=== PATIENT | female | born 1990 | race Caucasian/White ===

== ENCOUNTER 2021-10-28 23:36 | Inpatient (IN) | payer OTHER, SELFPAY ==
--- OUTSIDE RECORDS SUMMARY | 2021-10-28 23:39 | XMS REPORT | Continuity of Care Document ---
:1990 Author Organization [facility] t Address [address] [place] [address] Care Team Providers Name Role Phone Joe Attending Clinician Unavailable Salgado, Laura Admitting Clinician Unavailable Payers Payer Name Policy Type Policy Number Effective Date Expiration Date S ource Problems This patient has no known problems. Allergies, Adverse Reactions, Alerts Allergy Allergy Status Severity Reaction(s) Onset Inactive Treating Comm ents Source Name Type Date Date Clinician No Known DA Active U 2014- [facility] 8-20 [place] s 00:00: d 00 [facility] No Known DA Active U 2014-0 [facility] Allergie 8-20 Clear s 00:00: Pak [address] [place] [address] Medications This patient has no known medications. Procedures This patient has no known procedures. Encounters Start End Encounter Admission Attending Care Care Encounter Source Date/Time Date/Time Type Type Clinicians Facility Department ID 2021-08-16 2021-08-16 Emergency EM Joe, [facility] [id number] [facility] 21:12:00 21:38:00 Adolfo [id number] [facility] 2021-08-16 2021-08-16 Emergency EM Joe, [facility] [id number] [address] [facility] 21:12:00 21:38:00 Adolfo 44 [facility] Results This patient has no known results.
[2021-10-28 23:58] LABS: Absolute Lymphocytes (CBC) 1.7 K/uL (0.7-4.9); Hematocrit 44.4 % (36.0-45.0); MPV 8.5 fL (7.6-11.3); RBC Red Blood Cell Count 4.91 M/uL (3.86-4.86)
[2021-10-29 00:04] LABS: Protime INR 0.96
[2021-10-29 00:24] LABS: ALT/SGPT 21 U/L (12-78); AST/SGOT 18 U/L (15-37); Albumin 4.1 g/dL (3.4-5.0); Alkaline Phosphatase 57 U/L (45-117); BUN Blood Urea Nitrogen 8 mg/dL (7-18); Bicarbonate 30 mmol/L (21-32); Bilirubin Direct 0.2 mg/dL (0-0.2); Bilirubin Total 0.9 mg/dL (0.2-1.0); Glucose Level 91 mg/dL (74-106); Potassium 3.1 mmol/L (3.5-5.1); Protein, Total 7.8 g/dL (6.4-8.2); Sodium Level 137 mmol/L (136-145)
[2021-10-29] MEDS ORDERED: NA CHLORIDE 0.9% 1,000 ML ONE ×3 (00:33→09:50)
[2021-10-29 01:46] LABS: Barbiturates NEGATIVE (NEGATIVE); Benzodiazepines POSITIVE (NEGATIVE); Cocaine NEGATIVE (NEGATIVE); METHAMPHETAM POSITIVE (NEGATIVE); Methadone NEGATIVE (NEGATIVE); Opiates NEGATIVE (NEGATIVE); Phencyclidine NEGATIVE (NEGATIVE); THC Cannibis NEGATIVE (NEGATIVE)
[2021-10-29 03:19] LABS: Valproic Acid (Depakene) Level < 3.0 ug/mL (50-100)
[2021-10-29 03:44] LABS: Urine Blood Trace-intact (Negative); Urine Glucose Negative (Negative); Urine Protein Negative (Negative); Urine pH 5.5 (5.0-7.0)
--- NOTE | 2021-10-29 03:52 | ER ---
Nurse's Notes [facility] Name: Krystal Kelley Age: 31 yrs Sex: Female : 1990 Arrival Date: 10/28/2021 Time: 23:38 Bed External Waiting Private MD: Diagnosis: Altered mental status;Altered mental status, unspecified;Substance abuse: Methamphetamine, benzodiazepine Presentation: 10/28 23:47 Chief complaint: EMS states: possible overdose on Quetiapine 50mg and Divalproex st1 delayed release 250mg. Coronavirus screen: Vaccine status: Patient reports being unvaccinated. Client denies travel out of the [place] in the last 14 days. Ebola Screen: No symptoms or risks identified at this time. Initial Sepsis Screen: Does the patient meet any 2 criteria? No. Patient's initial sepsis screen is negative. Does the patient have a suspected source of infection? No. Patient's initial sepsis screen is negative. Risk Assessment: Do you want to hurt yourself or someone else? Patient reports no desire to harm self or others. Onset of symptoms was October 28, 2021. 23:47 Method Of Arrival: EMS: [place] [id number] 23:47 Acuity: RTAVIS 3 st1 Triage Assessment: 23:51 General: Appears in no apparent distress. comfortable, lethargic, slurred speech . st1 Behavior is calm, cooperative, drowsy, flat. Pain: Denies pain. 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 Flu vaccine is not up to date. - Social history:: Smoking status: Patient reports the use of cigarette tobacco products, smokes one pack cigarettes per day. Patient uses alcohol, Patient/guardian denies using street drugs, IV drugs. Screenin:53 Abuse screen: Denies threats or abuse. Nutritional screening: No deficits noted. st1 Tuberculosis screening: No symptoms or risk factors identified. Fall Risk None identified. No fall in past 12 months (0 pts). No secondary diagnosis (0 pts). IV access (20 points). Ambulatory Aid- None/Bed Rest/Nurse Assist (0 pts). Gait- Normal/Bed Rest/Wheelchair (0 pts) Mental Status- Oriented to own ability (0 pts). Total Alan Fall Scale indicates No Risk (0-24 pts). Assessment: 23:53 Reassessment: Patient and/or family updated on plan of care and expected duration. Pain st1 level reassessed. Patient denies pain at this time. General: Appears. Cardiovascular: No deficits noted. Respiratory: No deficits noted. Musculoskeletal: No deficits noted. 10/29 03:47 Reassessment: No changes from previously documented assessment. Patient and/or family sm5 updated on plan of care and expected duration. Pain level reassessed. 04:28 Reassessment: The patient was able to ambulate to the bathroom and back without st1 assistance. 06:33 Reassessment: pt asleep in bed. sm5 20:52 Reassessment: The patient removed her own IV access and was found walking down the [place] st1 in the ED She refused to sign AMA paperwork or wait for her discharge. The hospitalist was notified . Overdose: 10/28 23:54 Bernard Suicide Severity Screening: "In the past month, have you wished you were st1 or wished you could go to sleep and not wake up?" Patient responds "no." Patient responds "yes." Based off client's responses, additional C-SSRS screening questions required. "In the past month, have you actually had any thoughts of killing yourself?" Patient responds "no." "In your lifetime, have you ever done anything, started to do anything, or prepared to do anything to end your life?" Patient responds "no.". Patient took the patient states she took Quetiapine 50mg 1 tablet and Divalproex delayer release 250mg 1 tablet. She states she has taken this medication before however this time it " it me like a truck.". Overdose occurred 1-2 hours ago. 10/29 06:34 Bernard Suicide Severity Screening: "In the past month, have you actually had any sm5 thoughts of killing yourself?" Patient responds "yes." Based off client's responses, additional C-SSRS screening questions required. Vital Signs: 10/28 23:30 BP 132 / 87; Pulse 92; Resp 16; Pulse Ox 100% on R/A; st1 23:47 BP 103 / 69; Pulse 92; Resp 16; Temp 98.0; Pulse Ox 100% on R/A; Weight 68.04 kg; st1 Height 5 ft. 5 in. (165.10 cm); Pain 0/10; 10/29 00:33 BP 89 / 60; Pulse 77; Resp 10; Pulse Ox 100% on R/A; sm5 00:52 BP 91 / 61; Pulse 93; Resp 16; Pulse Ox 99% on R/A; st1 02:13 BP 87 / 56; Pulse 94; Resp 16; Pulse Ox 98% on R/A; st1 03:00 BP 81 / 58; Pulse 82; Resp 10; Pulse Ox 99% on R/A; st1 03:27 BP 99 / 72; Pulse 82; Resp 14; Pulse Ox 100% on R/A; st1 03:57 BP 112 / 89; Pulse 76; Resp 16; Pulse Ox 100% on R/A; sm5 06:33 BP 103 / 68; Pulse 84; Resp 15; Pulse Ox 100% on R/A; sm5 19:30 BP 105 / 65; Pulse 80; Resp 16; Temp 98.4; Pulse Ox 100% on R/A; st1 20:30 BP 110 / 65; Pulse 82; Resp 16; Pulse Ox 100% on R/A; st1 10/28 23:47 Body Mass Index 24.96 (68.04 kg, 165.10 cm) st1 ED Course: 10/28 23:38 Patient arrived in ED. wm 23:41 Diego Delacruz MD is Attending Physician. kdr 23:47 Laura England RN is Primary Nurse. st1 23:50 Triage completed. st1 23:52 Arm band placed on right wrist. EKG completed in triage. Results shown to . st1 23:52 Salicylate Sent. st1 23:52 Acetaminophen Sent. st1 23:52 Ptt, Activated Sent. st1 23:52 PT-INR Sent. st1 23:52 Hepatic Function Sent. st1 23:52 Basic Metabolic Panel Sent. st1 23:52 ETOH Level Sent. st1 23:52 CBC with Diff Sent. st1 10/29 00:54 Patient has correct armband on for positive identification. Placed in gown. Bed in low st1 position. Call light in reach. Side rails up X2. library monitor on. Pulse ox on. NIBP on. Warm blanket given. Verbal reassurance given. 00:54 No provider procedures requiring assistance completed. st1 01:24 Urine Drug Screen Sent. 5 03:07 Valproic Acid (Depakene) Level Sent. 5 03:49 Deny Iniguez is Hospitalizing Provider. kdr 13:11 COVID-19 SARS RT PCR (Document "Date of Onset" if Symptomatic) Sent. Administered Medications: 00:32 Drug: NS 0.9% 1000 ml Route: IV; Rate: 1 bolus; Site: right antecubital; sm5 02:20 Drug: NS 0.9% 1000 ml Route: IV; Rate: 1 bolus; Site: right antecubital; st1 06:09 Drug: Potassium Chloride 20 mEq Route: IV; Rate: calculated rate; Site: right st1 antecubital; 08:15 Follow up: Response: No adverse reaction; IV Status: Completed infusion ph Outcome: 03:51 Decision to Hospitalize by Provider. kdr 20:57 AMA Left before signing form. st1 20:57 Condition: stable 22:21 Patient left the ED. 5 Signatures: Diego Delacruz MD MD kdr Smirch, Shelby, RN RN Anum Menchaca RN RN Lisa Sosa Naima Alexander RN RN 5 Laura England, MARIA VICTORIA RN st1 Corrections: (The following items were deleted from the chart) 00:55 00:52 Bernard Suicide Severity Screening: "In the past month, have you actually had st1 any thoughts of killing yourself?" Patient responds "no." st1 00:55 00:54 Bernard Suicide Severity Screening: st1 st1 02:53 02:37 VALPROIC ACID (DEPAKOTE)+C.LAB.BRZ drawn and sent. st1 EDMS 20:57 20:52 Reassessment: The patient removed her own IV access and was found walking down st1 the [place]. She refused to sign AMA paperwork or wait for her discharge. st1
--- NOTE | 2021-10-29 03:52 | EDPHYS ---
Physician Documentation [facility] Name: Krystal Kelley Age: 31 yrs Sex: Female : 1990 Arrival Date: 10/28/2021 Time: 23:38 Bed External Waiting Private MD: ED Physician Diego Delacruz HPI: 10/29 04:59 This 31 yrs old Female presents to ER via EMS with complaints of Possible Overdose. kdr 04:59 The patient presents to the emergency department with a possible overdose, To local [facility] police station stating that she had taken her medications inappropriately. Is unclear whether she took multiple pills or just 1 pill from each of her 2 bottles.. Context: Method: the patient has a confirmed or suspected ingestion, Prescription medication, Time: the patient's OD/poisoning occurred at an unknown time, Extent: it is unknown what amount the patient ingested, the OD/poisoning occurred at at home, and was witnessed no one, Psychiatric history: the patient has a known psychiatric disorder, Anxiety and depressive disorder, Previous OD/poisoning history: It is unknown if the patient has had similar previous episodes. Associated signs and symptoms: Pertinent positives: Decreased/altered mental status. Severity of symptoms: At their worst the symptoms were moderate incapacitating just prior to arrival, in the emergency department the symptoms are unchanged. It is unknown whether or not the patient has had similar symptoms in the past. It is unknown whether or not the patient has recently seen a physician. 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 Flu vaccine is not up to date. - Social history:: Smoking status: Patient reports the use of cigarette tobacco products, smokes one pack cigarettes per day. Patient uses alcohol, Patient/guardian denies using street drugs, IV drugs. ROS: 10/29 04:59 Constitutional: Unable to obtain secondary to the patient's somnolent state kdr Unable to obtain ROS due to altered mental status. Exam: 00:54 ECG was reviewed by the Attending Physician. kdr 04:59 Constitutional: This is a well developed, well nourished patient who is somnolent but kdr in no acute distress. She responds to questions when prompted however sometimes her speech is slurred and difficult to understand her responses Head/Face: Normocephalic, atraumatic. Eyes: Pupils equal round and reactive to light, extra-ocular motions intact. Lids and lashes normal. Conjunctiva and sclera are non-icteric and not injected. Cornea within normal limits. Periorbital areas with no swelling, redness, or edema. Neck: Trachea midline, no thyromegaly or masses palpated, and no cervical lymphadenopathy. Supple, full range of motion without nuchal rigidity, or vertebral point tenderness. No Meningismus. Chest/axilla: Normal chest wall appearance and motion. Nontender with no deformity. No lesions are appreciated. Cardiovascular: Regular rate and rhythm with a normal S1 and S2. No gallops, murmurs, or rubs. Normal PMI, no JVD. No pulse deficits. Respiratory: Lungs have equal breath sounds bilaterally, clear to auscultation and percussion. No rales, rhonchi or wheezes noted. No increased work of breathing, no retractions or nasal flaring. Abdomen/GI: Soft, non-tender, with normal bowel sounds. No distension or tympany. No guarding or rebound. No evidence of tenderness throughout. Back: No spinal tenderness. No costovertebral tenderness. Full range of motion. Skin: Warm, dry with normal turgor. Normal color with no rashes, no lesions, and no evidence of cellulitis. MS/ Extremity: Pulses equal, no cyanosis. Neurovascular intact. Full, normal range of motion. 04:59 Neuro: Orientation: unable to test, Altered mental status, Cerebellar function: unable to test, Motor: moves all fours, Sensation: no obvious gross deficits. Vital Signs: 10/28 23:30 BP 132 / 87; Pulse 92; Resp 16; Pulse Ox 100% on R/A; st1 23:47 BP 103 / 69; Pulse 92; Resp 16; Temp 98.0; Pulse Ox 100% on R/A; Weight 68.04 kg; st1 Height 5 ft. 5 in. (165.10 cm); Pain 0/10; 10/29 00:33 BP 89 / 60; Pulse 77; Resp 10; Pulse Ox 100% on R/A; sm5 00:52 BP 91 / 61; Pulse 93; Resp 16; Pulse Ox 99% on R/A; st1 02:13 BP 87 / 56; Pulse 94; Resp 16; Pulse Ox 98% on R/A; st1 03:00 BP 81 / 58; Pulse 82; Resp 10; Pulse Ox 99% on R/A; st1 03:27 BP 99 / 72; Pulse 82; Resp 14; Pulse Ox 100% on R/A; st1 03:57 BP 112 / 89; Pulse 76; Resp 16; Pulse Ox 100% on R/A; sm5 06:33 BP 103 / 68; Pulse 84; Resp 15; Pulse Ox 100% on R/A; sm5 19:30 BP 105 / 65; Pulse 80; Resp 16; Temp 98.4; Pulse Ox 100% on R/A; st1 20:30 BP 110 / 65; Pulse 82; Resp 16; Pulse Ox 100% on R/A; st1 10/28 23:47 Body Mass Index 24.96 (68.04 kg, 165.10 cm) st1 MDM: 03:51 Patient medically screened. kdr 04:59 Data reviewed: vital signs, nurses notes, lab test result(s). Counseling: I had a kdr detailed discussion with the patient and/or guardian regarding: the historical points, exam findings, and any diagnostic results supporting the discharge/admit diagnosis, lab results. 10/28 23:41 Order name: Acetaminophen; Complete Time: 03:46 kdr 10/28 23:41 Order name: Basic Metabolic Panel; Complete Time: 03:46 kdr 10/28 23:41 Order name: CBC with Diff; Complete Time: 01:27 kdr 10/28 23:41 Order name: ETOH Level; Complete Time: 01:27 kdr 10/28 23:41 Order name: Hepatic Function; Complete Time: 03:46 kdr 10/28 23:41 Order name: PT-INR; Complete Time: 01:27 kdr 10/28 23:41 Order name: Ptt, Activated; Complete Time: 01:27 kdr 10/28 23:41 Order name: Salicylate; Complete Time: 01:27 kdr 10/28 23:41 Order name: Urine Drug Screen; Complete Time: 01:48 kdr 10/29 02:53 Order name: Valproic Acid (Depakene) Level; Complete Time: 03:46 EDMS 10/29 03:43 Order name: Urine Dipstick-Ancillary; Complete Time: 03:46 EDMS 10/29 10:00 Order name: CBC with Automated Diff EDME 10/29 10:20 Order name: Comprehensive Metabolic Panel EDME 10/28 23:41 Order name: EKG; Complete Time: 23:42 kdr 10/28 23:41 Order name: EKG - Nurse/Tech; Complete Time: 23:52 kdr 10/28 23:41 Order name: IV Saline Lock; Complete Time: 23:52 kdr 10/28 23:41 Order name: Labs collected and sent; Complete Time: 23:52 kdr 10/28 23:41 Order name: Suicide Screening ([place]); Complete Time: 00:03 kdr 10/28 23:41 Order name: Urine Dipstick-Ancillary (obtain specimen); Complete Time: 03:39 kdr 10/29 01:40 Order name: EKG Strip; Complete Time: 01:49 kdr 10/29 10:20 Order name: Lipid Profile EDME 10/29 10:20 Order name: T4 Free EDME 10/29 10:20 Order name: Thyroid Stimulating Hormone EDME 10/29 11:42 Order name: COVID-19 SARS RT PCR (Document "Date of Onset" if Symptomatic) 10/29 12:38 Order name: SARS-COV-2 RT PCR EDME EC:54 Rate is 82 beats/min. Rhythm is regular, Normal Sinus Rhythm with No ectopy. QRS [place] kdr is Normal. NM interval is normal. QRS interval is normal. Clinical impression: NSR w/ Non-specific ST/T Changes. Administered Medications: 00:32 Drug: NS 0.9% 1000 ml Route: IV; Rate: 1 bolus; Site: right antecubital; sm5 02:20 Drug: NS 0.9% 1000 ml Route: IV; Rate: 1 bolus; Site: right antecubital; st1 06:09 Drug: Potassium Chloride 20 mEq Route: IV; Rate: calculated rate; Site: right st1 antecubital; 08:15 Follow up: Response: No adverse reaction; IV Status: Completed infusion ph Disposition Summary: 10/29/21 03:51 Hospitalization Ordered Hospitalization Status: Inpatient Admission kdr Provider: Deny Iniguez Condition: Fair kdr Problem: new kdr Symptoms: have improved kdr Bed/Room Type: Standard kdr Location: [facility] ER HOLD(10/29/21 05:53) cg Room Assignment: ERHOLD-(10/29/21 05:53) cg Diagnosis - Altered mental status kdr - Altered mental status, unspecified kdr - Substance abuse: Methamphetamine, benzodiazepine kdr Forms: - Medication Reconciliation Form kdr - SBAR form kdr Signatures: Dispatcher [employer] EDMS Diego Delacruz MD MD kdr Dhara Saldana RN RN bb Maya Taylor RN RN cg Naima Alexander RN RN sm5 Laura England RN RN st1 Melina Segura PA PA sb3 Anum Menchaca RN ph Corrections: (The following items were deleted from the chart) 02: 02:33 VALPROIC ACID (DEPAKOTE)+C.LAB.BRZ ordered. EDME EDME 05:53 03:51 Telemetry/MedSurg (Inpatient) kdr 05:53 03:51 kdr cg
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
[2021-10-29] MEDS ORDERED: KCL 20 MEQ/100 mL IVPB 100 ML IV ONE (06:14)
[2021-10-29 06:52] VITALS: BMI 24.9
--- NOTE | 2021-10-29 07:22 | EKG ---
Test Date: 2021-10-28 Test Time: 23:33:28 Supervisor Cooler Service: [place] MEASUREMENT RESULTS: Intervals: Rate: 82 CO: 126 QRSD: 88 QT: 366 QTc: 427 [place]: P: 62 CO: 126 QRS: 29 T: 33 INTERPRETIVE STATEMENTS: Normal sinus rhythm Normal ECG No previous ECG available for comparison Electronically Signed On 10-29-21 07:22:29 HEEL SEAT TRIMMER by Shun Galeana
[2021-10-29] MEDS ORDERED: ONDANSETRON 4 MG/2 ML VIAL IV PRN (09:28)
[2021-10-29] MEDS ORDERED: NA CHLORIDE 0.9% 1,000 ML IV SCH (09:28)
[2021-10-29] MEDS ORDERED: ENOXAPARIN 40 MG/0.4 ML SQ SCH (09:28)
[2021-10-29] MEDS ORDERED: ACETAMINOPHEN 500 MG TAB PO PRN (09:28)
[2021-10-29] MEDS ORDERED: ENOXAPARIN 40 MG/0.4 ML SQ ONE (09:50)
[2021-10-29 09:58] LABS: Absolute Lymphocytes (CBC) 1.5 K/uL (0.7-4.9); Hematocrit 38.3 % (36.0-45.0); Lymphocytes % 33.2 % (15.3-44.8); MPV 8.4 fL (7.6-11.3); RBC Red Blood Cell Count 4.26 M/uL (3.86-4.86)
[2021-10-29 10:19] LABS: ALT/SGPT 20 U/L (12-78); AST/SGOT 19 U/L (15-37); Albumin 2.9 g/dL (3.4-5.0); Alkaline Phosphatase 43 U/L (45-117); BUN Blood Urea Nitrogen 5 mg/dL (7-18); Bicarbonate 24 mmol/L (21-32); Bilirubin Total 0.8 mg/dL (0.2-1.0); Glucose Level 86 mg/dL (74-106); HDL Cholesterol 42 mg/dL (40-60); LDL Cholesterol, Calculated 61 (<130); Potassium 4.2 mmol/L (3.5-5.1); Protein, Total 5.7 g/dL (6.4-8.2); Sodium Level 142 mmol/L (136-145)
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
[2021-10-30 00:50] VITALS: O2SAT 100
[2021-10-30 00:54] VITALS: TEMP 98.4
[2021-10-30 00:55] VITALS: BP 110/65
== END 2021-10-29 20:55 | disposition home or self-care (01) | DRG 917 ==
LOC: ER 23:36 → ERHOLD 10-29 04:13
PROVIDERS: ADMIT Internal Medicine; ATTEND Internal Medicine
DX: T42.6X1A Poisoning by other antiepileptic and sedative-hypnotic drugs, accidental (unintentional), initial encounter (principal); G92.8 Other toxic encephalopathy; T43.591A Poisoning by other antipsychotics and neuroleptics, accidental (unintentional), initial encounter; I95.2 Hypotension due to drugs; Y92.009 Unspecified place in unspecified non-institutional (private) residence as the place of occurrence of the external cause; F41.9 Anxiety disorder, unspecified; F17.210 Nicotine dependence, cigarettes, uncomplicated; Z20.822 Contact with and (suspected) exposure to COVID-19
CPT/HCPCS: 36415; 80048; 80053; 80061; 80076; 80164; 80307; 80320; 80329; 81003; 84439; 84443; 85025; 85610; 85730; 93005; 96365; 96366; 99284; J1650; J3480; J7030; U0003